=== PATIENT | female | born 1995 | race Caucasian/White ===

== ENCOUNTER 2024-11-24 16:21 | Emergency (ER) | payer MEDICARE, OTHER ==
[2024-11-24 16:31] VITALS: RESP 18
[2024-11-24] MEDS: SODIUM CHLORIDE 0.9% 1,000 ML IV ONE (16:52)
[2024-11-24] MEDS: MORPHINE SULFATE 4 MG/ML SYRINGE IVP STA (16:53)
[2024-11-24] MEDS: LIDOCAINE 4% PATCH TOPICAL ONE (16:56)
[2024-11-24] MEDS: HYDROmorphone 1 MG/ML 1 ML SYRINGE IVP STA (18:12)
--- NOTE | 2024-11-24 18:31 | CT ---
EXAMINATION TYPE: CT lumbar spine wo con DATE OF EXAM: 11/24/2024 6:00 PM COMPARISON: None. CLINICAL INDICATION: Female, 29 years old with history of acute on chronic pain; PHH, low back pain TECHNIQUE: Multiple axial images were obtained from the midportion of T11 through the sacroiliac saadia nts. Soft tissue and bone windows in coronal and sagittal planes were obtained and reviewed. Contrast used: mL of , (None, if empty). Oral contrast used: (None, if empty). CT DLP: 1459.6 mGycm, Automated exposure control for dose reduction was used. FINDINGS: Alignment: There are 5 lumbar type vertebral bodies within normal alignment. Bone: Postsurgical changes of the L5-S1 with fixation place. Fixation hardware intact. Discectomy at L5-S1. No evidence fracture. Mild degeneration changes of atrophy. Evidence for significant spinal ca nal or neural foraminal stenosis. Laminectomy changes at L5. Discs: T12-L1: No spinal canal or neural foraminal stenosis is identified. L1-L2: No spinal canal or neural foraminal stenosis is identified. L2-L3: No spinal canal or neural foraminal stenosis is identified. L3-L4: No spinal canal or neural foraminal stenosis is identified. L4-L5: No spinal canal or neural foraminal stenosis is identified. L5-S1: No spinal canal or neural foraminal stenosis is identified. Other: Nonobstructing renal calculi. IMPRESSION: 1. No evidence for spinal fracture. 2. Postsurgical changes from L5-S1 with hardware intact. 3. No evidence for high-grade spinal canal or neural foraminal stenosis within the limitations of the exam. 4. Bilateral nonobstructing renal calculi. [facility], , 11/24/2024 6:29 PM
--- NOTE | 2024-11-24 18:41 | ED ---
General Adult HPI - General Chief complaint: Back Pain/Injury Stated complaint: back pain Time Seen by Provider: 11/24/24 16:35 Source: patient, EMS, RN notes reviewed, old records reviewed Mode of arrival: EMS Limitations: no limitations - History of Present Illness Initial comments: 29-year-old female presents emergency department with acute on chronic back pain. Patient has a history of chronic lumbar spine pain. Denies any saddle paresthesias, urinary or bowel incontinence or retention, lower extremity paralysis. Denies any chest pain or shortness of breath. Denies any abdominal pain or nausea, vomiting. Has no other acute complaints. Is currently being treated for PE with blood thinners. States she ran out of her normal Percocet last and does negative refill until next week. Presents for further evaluation at this time. States this is her typical back pain with radiation down the posterior aspects of bilateral legs. Patient denies any saddle paresthesias. Denies any urinary or bowel incontinence or retention. Denies any lower extremity paralysis. - Related Data Previous Rx's Medication Instructions Recorded Cyclobenzaprine [Flexeril] 5 mg PO TID PRN 5 Days #15 tablet 11/24/24 Allergies Allergy/AdvReac Type Severity Reaction Status Date / Time clindamycin Allergy Unknown Verified 11/24/24 16:30 prochlorperazine Allergy Unknown Verified 11/24/24 16:30 [From Compazine] Review of Systems ROS Statement: Those systems with pertinent positive or pertinent negative responses have been documented in the HPI. Review of Systems: CONST: Denies fever EYES: Denies blurry vision ENT: Denies nasal congestion C/V: Denies Chest pain RESP: Denies shortness of breath GI: Denies abdominal pain : Denies dysuria SKIN: Denies rash. MSK: Endorses back pain NEURO: Denies headache ROS Other: All systems not noted in ROS Statement are negative. Past Medical History Past Medical History: Fibromyalgia Additional Past Medical History / Comment(s): Ankylosing Spondylitis History of Any Multi-Drug Resistant Organisms: None Reported Past Surgical History: Back Surgery Past Psychological History: No Psychological Hx Reported, Anxiety, Depression, PTSD Smoking Status: Never smoker Past Alcohol Use History: Occasional Past Drug Use History: Marijuana General Exam - General Exam Comments Initial Comments: General: Appears in no acute distress. HEAD: Normal with no signs of head trauma. EYES: EOMI. ENT: Hearing grossly intact. RESPIRATORY: No respiratory distress. C/V: Regular rate and rhythm. ABD: Abdomen is nondistended. EXT: Tenderness to palpation of the mid lumbar spine with some paraspinal muscle tenderness to palpation. No obvious step-offs or deformities. No obvious injury. Able to move bilateral lower extremities. Neurovasc intact throughout. SKIN: No rashes or lesions observed on exposed skin. NEURO: Alert and oriented. Limitations: no limitations Course Vital Signs 11/24/24 11/24/24 16:25 18:03 Temperature 98.3 F Pulse Rate 94 86 Respiratory 18 18 Rate Blood Pressure 95/60 110/67 O2 Sat by Pulse 95 99 Oximetry Medical Decision Making - Medical Decision Making Was pt. sent in by a medical professional or institution ( PA, INCLUSION TEACHER, urgent care, hospital, or group home...) When possible be specific @ -No Did you speak to anyone other than the patient for history (EMS, parent, family, police, friend...)? What history was obtained from this source @ -No Did you review nursing and triage notes (agree or disagree)? Why? @ -I reviewed and agree with nursing and triage notes Were old charts reviewed (outside hosp., previous admission, EMS record, old EKG, old radiological studies, urgent care reports/EKG's, group home records)? Report findings @ -No old charts were reviewed Differential Diagnosis (chest pain, altered mental status, abdominal pain women, abdominal pain men, vaginal bleeding, weakness, fever, dyspnea, syncope, headache, dizziness, GI bleed, back pain, seizure, CVA, palpatations, mental health, musculoskeletal)? @ -Differential Back Pain: Strain, zoster, cauda equina syndrome, epidural abscess, vertebral osteomyelitis, discitis, fracture, subluxation, disc herniation, DJD, spinal stenosis, dissection, AAA, pancreatitis, peptic ulcer disease, pyelonephritis, kidney stone, this is not meant to be an all-inclusive list. EKG interpreted by me (3pts min.). @ -None done X-rays interpreted by me (1pt min.). @ -None done CT interpreted by me (1pt min.). @ -CT of the lumbar spine shows no obvious acute injury. Chronic changes are present including postsurgical changes that appear within acceptable limits. U/S interpreted by me (1pt. min.). @ -None done What testing was considered but not performed or refused? (CT, X-rays, U/S, labs)? Why? @ -None What meds were considered but not given or refused? Why? @ -None Did you discuss the management of the patient with other professionals (professionals i.e. , PA, INCLUSION TEACHER, lab, RT, psych nurse, social media developer, blender laborer, teacher, operations officer trust department, case technician)? Give summary @ -No Was smoking cessation discussed for >3mins.? @ -No Was critical care preformed (if so, how long)? @ -No Were there social determinants of health that impacted care today? How? (Homelessness, low income, unemployed, alcoholism, drug addiction, transportat ion, low edu. Level, literacy, decrease access to med. care, prison, rehab)? @ -No Was there de-escalation of care discussed even if they declined (Discuss DNR or withdrawal of care, Hospice)? DNR status @ -No What co-morbidities impacted this encounter? (DM, HTN, Smoking, COPD, CAD, Cancer, CVA, ARF, Chemo, Hep., AIDS, mental health diagnosis, sleep apnea, morbid obesity)? @ -None Was patient admitted / discharged? Hospital course, mention meds given and route, prescriptions, significant lab abnormalities, going to OR and other pertinent info. @ -Based on the patient's presentation physical exam, presents emergency department complaining of acute on chronic back pain. Ran out of her normal Percocet. States this is her normal back pain. No red flag symptoms to suggest cauda equina syndrome at this time. Vitals within acceptable limits. She will be given analgesia medications. Will obtain CT lumbar spine. She was in agreement this plan. Symptoms are similar to her chronic symptoms which do appear to be related to sciatica as well. CT imaging negative. I updated the patient. She was discharged with a starter pack of Tylenol 3. She was in agreement this plan. I will also provide her with a dose of steroids prior to discharge. Strict return precautions discussed. I instructed the patient to follow up with their PCP in the next 1-3 days. I explained that the patient should return to the emergency department if they experience any worsening symptoms. Strict return precautions were discussed with the patient. The patient expressed understanding of these instructions. I answered all questions that the patient had. The patient was discharged home in good condition with their prescriptions and follow up information. Undiagnosed new problem with uncertain prognosis? @ -No Drug Therapy requiring intensive monitoring for toxicity (Heparin, Nitro, Insulin, Cardizem)? @ -No Were any procedures done? @ -No Diagnosis/symptom? @ -Back pain Acute, or Chronic, or Acute on Chronic? @ -Acute on chronic Uncomplicated (without systemic symptoms) or Complicated (systemic symptoms)? @ -Uncomplicated Side effects of treatment? @ -No Exacerbation, Progression, or Severe Exacerbation? @ -No Poses a threat to life or bodily function? How? (Chest pain, USA, MD, pneumonia, PE, COPD, DKA, ARF, appy, cholecystitis, CVA, Diverticulitis, Homicidal, Suicidal, threat to staff... and all critical care pts) @ -Unlikely at this time Disposition Clinical Impression: Chronic back pain Disposition: ADMITTED IP TO THIS [facility] Condition: Stable Instructions (If sedation given, give patient instructions): Acute Low Back Pain (ED) Prescriptions: Cyclobenzaprine [Flexeril] 5 mg PO TID PRN 5 Days #15 tablet PRN Reason: Pain Is patient prescribed a controlled substance at d/c from ED?: No Referrals: Nonstaff,Physician [Primary Care Provider] - 1-2 days Time of Disposition: 18:53
[2024-11-24] MEDS: methylPREDNISolone SOD SUCCI 40 MG/ML 1 ML VIAL IV STA (18:59)
[2024-11-24] MEDS: ACET/COD 300 MG/30 MG STARTER PACK 6 TAB BTL PO STA (18:59)
[2024-11-24 19:06] VITALS: BP 125/82; PULSE 76; TEMP 97.7
== END 2024-11-24 19:07 | disposition other institution (70) ==
LOC: EC 16:21
DX: G89.29 Other chronic pain (principal); M54.50 Low back pain, unspecified
CPT/HCPCS: 72131; 99285; 96374; 96375 ×2; 96361; J2270; J1171; J2919

== ENCOUNTER 2024-11-25 04:01 | Emergency (ER) | payer MEDICARE, OTHER ==
[2024-11-25 04:11] VITALS: TEMP 98.2
[2024-11-25] MEDS: oxyCODONE-APAP 5-325MG 1 EACH TAB PO STA (04:59)
[2024-11-25] MEDS: KETOROLAC 15 MG/ML 1 ML VIAL IM STA (04:59)
--- NOTE | 2024-11-25 05:15 | ED ---
General Adult HPI - General Chief complaint: Back Pain/Injury Stated complaint: Back pain Time Seen by Provider: 11/25/24 04:10 Source: patient, EMS, RN notes reviewed, old records reviewed Mode of arrival: EMS - History of Present Illness Initial comments: 29-year-old female presents with complaints of lower back pain. Of note patient was seen earlier in the day for similar symptoms, at that time was given pain medication with more or less full resolution of her symptoms and discharge at that time. Patient reports she got home around 7 PM and took the Tylenol threes that she was prescribed from the ER, states this did not help the pain much and by around 3 AM the pain was intolerable and decided she needed to call EMS and get brought back to the hospital. States the pain is mostly midline but radiates to the left and right sides of the lower back as well as to her hips and down her legs. She believes that this is all from riding her bike earlier yesterday. - Related Data Previous Rx's Medication Instructions Recorded Cyclobenzaprine [Flexeril] 5 mg PO TID PRN 5 Days #15 tablet 11/24/24 Allergies Allergy/AdvReac Type Severity Reaction Status Date / Time clindamycin Allergy Unknown Verified 11/24/24 16:30 prochlorperazine Allergy Unknown Verified 11/24/24 16:30 [From Compazine] Review of Systems ROS Statement: Those systems with pertinent positive or pertinent negative responses have been documented in the HPI. ROS Other: All systems not noted in ROS Statement are negative. Past Medical History Past Medical History: Fibromyalgia Additional Past Medical History / Comment(s): Ankylosing Spondylitis History of Any Multi-Drug Resistant Organisms: None Reported Past Surgical History: Back Surgery Past Psychological History: No Psychological Hx Reported, Anxiety, Depression, PTSD Smoking Status: Never smoker Past Alcohol Use History: Occasional Past Drug Use History: Marijuana General Exam - General Exam Comments Initial Comments: GENERAL: In apparent distress at the time of examination while chronic back pain. Pleasant and cooperative. HEENT: Head is atraumatic, normocephalic. Pupils are equal, round, and reactive to light. Sclerae anicteric. Conjunctivae are clear. Mucus membranes of the mouth are moist. Neck is supple. RESPIRATORY: Clear to auscultation. No wheezes, rales, or rhonchi. No use of accessory muscles. Patient maintaining oxygen saturation greater than 92%. No chest wall tenderness is noted on palpation or with deep breathing. CARDIOVASCULAR: Regular rate and rhythm. S1 and S2 noted. No systolic or diastolic murmur auscultated. No JVD noted. No S3 or S4 noted. GASTROINTESTINAL: No distention noted. Abdomen soft and round. Normal active bowel sounds auscultated x 4 quadrants. No pain or tenderness noted upon palpation. INTEGUMENTARY: No cyanosis. No jaundice. No rashes noted. No cellulitis noted. EXTREMITIES: 2+ peripheral pulses. No evidence of peripheral edema. No calf tenderness noted. MSK: Tenderness with palpation tenderness to the lower lumbar region with accompanying tenderness radiating to the bilateral hips PSYCHIATRIC: Awake, alert, and oriented X 3. Appropriate affect. Intact judgement and insight. Course Vital Signs 11/25/24 04:03 Temperature 98.2 F Pulse Rate 89 Respiratory 20 Rate Blood Pressure 115/83 O2 Sat by Pulse 98 Oximetry Medical Decision Making - Medical Decision Making Was pt. sent in by a medical professional or institution (, PA, REGISTRATION REPRESENTATIVE, urgent care, hospital, or [facility]...) When possible be specific @ -No Did you speak to anyone other than the patient for history (EMS, parent, family, police, friend...)? What history was obtained from this source @ -No Did you review nursing and triage notes (agree or disagree)? Why? @ -I reviewed and agree with nursing and triage notes Were old charts reviewed (outside hosp., previous admission, EMS record, old EKG, old radiological studies, urgent care reports/EKG's, [facility] records)? Report findings @ -Yes to [facility] Differential Diagnosis? @ -Lumbar strain/sprain, herniated disc, compression fracture, spondylosis and degenerative disc disease this not meant to be a fully inclusive list EKG interpreted by me (3pts min.). @ -As above X-rays interpreted by me (1pt min.). @ -None done CT interpreted by me (1pt min.). @ -None done U/S interpreted by me (1pt. min.). @ -None done What testing was considered but not performed or refused? (CT, X-rays, U/S, labs)? Why? @ -None What meds were considered but not given or refused? Why? @ -None Did you discuss the management of the patient with other professionals (professionals i.e. DrAtilio, PA, REGISTRATION REPRESENTATIVE, lab, RT, psych nurse, social science analyst, systems mechanic, teacher, health promotion officer, pillowcase cleaner)? Give summary @ -No Was smoking cessation discussed for >3mins.? @ -No Was critical care preformed (if so, how long)? @ -No Were there social determinants of health that impacted care today? How? (Homelessness, low income, unemployed, alcoholism, drug addiction, transportation, low edu. Level, literacy, decrease access to med. care, snf, rehab)? @ -No Was there de-escalation of care discussed even if they declined (Discuss DNR or withdrawal of care, Hospice)? DNR status @ -No What co-morbidities impacted this encounter? (DM, HTN, Smoking, COPD, CAD, Cancer, CVA, ARF, Chemo, Hep., AIDS, mental health diagnosis, sleep apnea, morbid obesity)? @ -None Was patient admitted / discharged? Hospital course, mention meds given and route, prescriptions, significant lab abnormalities, going to OR and other pertinent info. @ -Discharged, patient returned to the ED after being discharged recently for similar symptoms of lower back pain. CT lumbar spine at that time showed no acute fracture and previous hardware intact and in place. Patient was given Toradol and Percocet but she continued to have pain, after that Dilaudid oral was given with resolution of the patient's symptoms. Patient was discharged and advised to follow-up with PCP in 1 to 2 days. Also recommended patient see a painter plate for her chronic lower back pain. Patient was given prescription for short course of Flexeril upon discharge, Dr. Galvan had previously prescribed this medication for the patient during her last ER stay but scented to the pharmacy in the hospital which will be closed today so I wrote a hand prescription for her to take. Undiagnosed new problem with uncertain prognosis? @ -No Drug Therapy requiring intensive monitoring for toxicity (Heparin, Nitro, Insulin, Cardizem)? @ -No Were any procedures done? @ -No Diagnosis/symptom? @ -Lower lumbar sprain Acute, or Chronic, or Acute on Chronic? @ -Acute on chronic Uncomplicated (without systemic symptoms) or Complicated (systemic symptoms)? @ -Default Side effects of treatment? @ -No Exacerbation, Progression, or Severe Exacerbation? @ -No Poses a threat to life or bodily function? How? (Chest pain, USA, ID, pneumonia, PE, COPD, DKA, ARF, appy, cholecystitis, CVA, Diverticulitis, Homicidal, Suicidal, threat to staff... and all critical care pts) @ -No Disposition Clinical Impression: Strain of lumbar region Disposition: HOME SELF-CARE Instructions (If sedation given, give patient instructions): Acute Low Back Pain (ED) Is patient prescribed a controlled substance at d/c from ED?: No Referrals: Nonstaff,Physician [Primary Care Provider] - 1-2 days
[2024-11-25] MEDS: HYDROmorphone 2 MG TAB PO STA (05:57)
[2024-11-25 06:48] VITALS: BP 130/90; PULSE 66; RESP 18
== END 2024-11-25 06:53 | disposition home or self-care (01) ==
LOC: EC 04:01
DX: S39.012A Strain of muscle, fascia and tendon of lower back, initial encounter (principal); Z88.8 Allergy status to other drugs, medicaments and biological substances; Z88.1 Allergy status to other antibiotic agents; X58.XXXA Exposure to other specified factors, initial encounter; Y92.009 Unspecified place in unspecified non-institutional (private) residence as the place of occurrence of the external cause
CPT/HCPCS: 99283; 96372; J1885